=== PATIENT | male | born 1980 | race Caucasian/White ===

== ENCOUNTER → 2020-10-29 07:00 | Outpatient (CLI) | payer OTHER, SELFPAY ==
--- NOTE | ~2020-10-29 | MR_ITS ---
EXAMINATION: MR knee LT wo con DATE: 10/29/2020 07:36 INDICATION: Left knee pain. TECHNIQUE: Magnetic resonance imaging (MRI) of the left knee was performed without intravenous contra st. Sequences included axial PD-weighted FS FSE, coronal PD-weighted FSE and PD-weighted FS FSE, sagi ttal PD-weighted FSE, and sagittal T2-weighted FS FSE. COMPARISON: Left knee radiographs 08/27/2020 FINDINGS: Medial compartment: There is a complex tear of body and posterior horn of medial meniscus with torn bucket-handle compone nt in the intercondylar notch. There is cartilage surface irregularity of tibial condyle and femoral condyle. Lateral compartment: The lateral meniscus is normal. There is cartilage surface irregularity of tibial condyle. Femoral ca rtilage is normal. Patellofemoral compartment: There is cartilage surface irregularity of patellar medial facet. Trochlear cartilage is normal. Ligaments and tendons: The anterior and posterior cruciate ligaments are normal. Medial collateral ligament is normal. There are changes of prior sprain of fibular collateral ligament characterized by thickening and increased signal intensity proximally. There is mild patellar tendinopathy. Fluid: There is a small knee joint effusion. There is trace fluid in a Vyas's cyst. IMPRESSION: 1. Mild tricompartmental chondrosis. 2. Complex tear of medial meniscus with torn bucket-handle component in the intercondylar notch. 3. Small knee joint effusion. Reviewed, dictated and finalized at location A. HER ADVISOR IMPRESSION: 1. Mild tricompartmental chondrosis. 2. Complex tear of medial meniscus with torn bucket-handle component in the int ercondylar notch. 3. Small knee joint effusion.
== END ==
PROVIDERS: PCP Family Medicine; Visit Provider Orthopaedic Surgery
DX: M25.462 Effusion, left knee (principal); S83.232A Complex tear of medial meniscus, current injury, left knee, initial encounter; X58.XXXA Exposure to other specified factors, initial encounter
CPT/HCPCS: 73721

== ENCOUNTER → 2020-11-01 00:17 | Outpatient (CLI) | payer OTHER, SELFPAY ==
[2020-11-01 18:19] LABS: SARS-CoV-2 RNA PCR Negative
== END ==
PROVIDERS: PCP Family Medicine; Visit Provider Orthopaedic Surgery
DX: Z01.812 Encounter for preprocedural laboratory examination (principal); Z20.822 Contact with and (suspected) exposure to COVID-19
CPT/HCPCS: C9803; U0003; U0005

== ENCOUNTER 2020-11-04 01:00 | Day surgery (SDC) | payer OTHER, SELFPAY ==
[2020-10-30 11:48] VITALS: BMI 29.3
[2020-11-04] VITALS (7 sets, daily range): BP systolic 112–146; BP diastolic 58–90; PULSE 55–72; RESP 12–16; TEMP 36–36.1; O2SAT 100
[2020-11-04] MEDS: ACETAMINOPHEN 500 MG TABLET 1000 MG PO (09:14)
--- NOTE | 2020-11-04 09:22 | WPDHPUPDATE1 ---
History and Physical Update Update Date/Time: 11/04/20 09:22 History and Physical has been reviewed, including an updated exam of the patient. There are NO changes in the patient's condition. Risks, benefits, and alternatives have been discussed and questions answered. Patient agrees to proceed with procedure.
[2020-11-04] MEDS: LACTATED RINGERS 1,000 ML 30 ML IV CONT (09:30)
[2020-11-04] MEDS: KETOROLAC 15 MG/ML VIAL (*BKC) IV PUSH (09:31)
--- NOTE | 2020-11-04 09:35 | P.PNAN_ITS ---
Anes - Initial Pre Proc Eval Procedure: Operation Date: 11/04/20 10:30 Proposed Procedures p Left Knee Arthroscopy, Partial Meniscectomy - Issa Lutz MD Date/Time: 11/04/20 09:35 Surgeon: Issa Lutz MD Pre Op Diagnosis: Left Knee Medial Meniscus Tear Patient Data Age: 40 Gender: M Height: 1.83 m Weight: 100 kg Last Vital Signs Temp 36.1 C L 11/04/20 08:42 Pulse 69 11/04/20 08:42 Resp 16 11/04/20 08:42 BP 146/90 H 11/04/20 08:42 Pulse Ox 100 11/04/20 08:42 Allergies Allergy/AdvReac Type Severity Reaction Status Date / Time No Known Allergies Allergy Verified 11/04/20 08:51 Home Medications Medication Instructions Recorded Confirmed Type famotidine [Pepcid AC] 20 mg PO DAILY PRN 10/30/20 11/04/20 History Patient hx anesthesia problems: none Family hx anesthesia problems: none PMFSH Past Medical History Medical History (Updated 11/01/20 @ 09:13 by Quan Laureano DO) BMI 29.0-29.9,adult GERD (gastroesophageal reflux disease) Surgical History Surgical History H/O right knee surgery lateral release Family History Family History Grandparent Family history of lung cancer Family history of heart disease in male family member before age 55 Social History Social History Smoking status: Never smoker Alcohol intake: current Living arrangements: with family 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 Gender identity (if verbalized by the patient): Male Spiritual care concerns: No Anes - Eval Final PreProcedure Day of Procedure 11/04/20 09:35 Patient weight: overweight Heart: regular rate and rhythm Lungs: clear to auscultation and normal air movement Airway: Mallampati scale class II Neurological: alert and oriented Last oral intake: >/= 8 hours ASA classification: II Emergent: no Anesthetic plan: proceed Anesthesia type and monitoring: general LMA and standard monitoring Informed Consent: The patient's anesthetic plan and its attendant risks and benefits were discussed with the patient/family/POA. Questions were solicited and answers provided to the satisfaction of the patient/family/POA.
[2020-11-04] MEDS: ceFAZolin 2 GM/D5W 50 ML 2 GM/50 ML BAG IVPB (10:34)
[2020-11-04] MEDS: LIDOCAINE HCL 1% LOCAL INJ 20 ML VIAL 50 ML INFILTRATE (10:35)
--- NOTE | 2020-11-04 11:02 | PM.PROC ---
Procedure Note - Detailed Date of procedure: 11/04/20 Pre-op diagnosis: Left Knee Medial Meniscus Tear Post-op diagnosis: same Procedure performed: Left knee arthroscopy, partial medial meniscectomy Description of procedure: The patient was identified and proper site identified. He was taken to the operating room and transferred to the OR table placing her supine taking care to pad the torso and extremities. After general anesthetic induction and intubation, a nonsterile tourniquet was placed high on the left thigh but was not use. The left lower extremity was positioned, prepped and draped in usual sterile fashion. 10 cc of 1% lidocaine was injected into the subcutaneous tissue in the area of the portals at start of the procedure, and an additional 10 at the end. The portals were established and the arthroscopy was carried out. The articular cartilage in all three compartments was in excellent condition with minimal fraying appreciated medially. Lateral meniscal cartilage was in continuity and was intact. Medially there was complex tearing of the posterior horn of the medial meniscus involving the posterior third. Anterior posterior cruciate ligaments were in continuity. The pouch and gutters were clear. The torn meniscus was contoured back to a stable rim with basket forceps and a shaver. Knee was flushed with a copious amount of arthroscopic fluid and the ArthroCare Wand was used for hemostasis. Portals were closed with three O nylon suture and a sterile dressing was applied. He tolerated the procedure well, was awakened, extubated and taken to recovery area in stable condition. There were no known intraoperative complications. Estimated blood loss was negligible. He received perioperative antibiotics. Anesthesia: GLMA Surgeon: Issa Lutz MD Estimated blood loss (mL): 5 Drains: No Packing: No Pathology: none sent Complications: No immediate complications Condition: stable Disposition: PACU
== END 2020-11-04 12:40 | disposition home or self-care (01) ==
PROVIDERS: PCP Family Medicine; Visit Provider Orthopaedic Surgery
PROC: (CPT 29870; principal; 2020-11-04 10:30)
DX: M23.322 Other meniscus derangements, posterior horn of medial meniscus, left knee (principal); K21.9 Gastro-esophageal reflux disease without esophagitis
CPT/HCPCS: 29881; A9270; C9803; J0690; J1100; J1885; J2250; J2405; J2704; J3010; J7120; U0003; U0005

== ENCOUNTER 2020-12-05 14:00 | Outpatient (RCR) | payer OTHER, SELFPAY ==
--- NOTE | 2020-11-07 13:59 | PTOPEVAL ---
PHYSICAL THERAPY EVALUATION AND PLAN OF CARE 11-07-20 Thank you for referring Fredrick Ash to [facility].? He is scheduled to be seen for therapy? 1-2x/week for 4 weeks. review, sign, date and return this plan of care PITER. I agree with and certify that the following plan of care is medically necessary. Referring Physician Date Attending Provider: Issa Lutz MD PT Outpatient Evaluation Document 11/07/20 13:10 RANDY (Rec: 11/07/20 13:59 RANDY [id number]) Outpatient Past Medical History Past Medical History Source of Past Medical History Recalled from Previous Visit, Confirmed with Patient/Family Neurological History Hx Neurological Disorders No Significant History Cardiovascular History Hx Cardiac Disorders No Significant History Respiratory History Hx Respiratory Disorders No Significant History Gastrointestinal History Hx Gastroesophageal Reflux Disease Yes Genitourinary History Hx Genitourinary Disorders No Significant History Musculoskeletal History Hx Crutches or Walker Use Yes: this admit/surgery Query Text:If Yes, Enter Crutches, Walker, or Both in the Comment Hx Orthopedic Surgery Yes: arthroscopy right knee 25 years ago. Hx Other Musculoskeletal Disorders Yes: R ITB pain; Hematological History Hx Hematological Disorders No Significant History Endocrine History Hx Endocrine Disorders No Significant History HEENT History Hx HEENT Disorders No Significant History Integumentary History Hx Skin Disorders No Significant History Reproductive History Hx Reproductive Disorders No Significant History Psychosocial History Hx Psychiatric Disorders No Significant History Pain History History of Any Previous or Ongoing No Significant History Instance of Pain Anesthesia History Hx Anesthesia Reactions No Significant History Evaluation Information Problem Diagnosis s/p L knee arthroscopy Onset 11-04-20 Subjective Information onset of L knee pain in Query Text:As Reported By Patient/ June;gradual increase in Family pain--degenerative tear; used crutches for one day after surgery, then able to bear weight without any problems, so no longer using them; took dressing off this AM; Prior Level of Function Activity Level (Last 3 Months) Occupation office work- sales; computer, phone Activity of Daily Living Ability Independent Indoor/Home Mobility Independent Community Mobility Independent Stairs Ability Independent Functional Cognition (Plan
--- NOTE | 2020-12-05 14:40 | PTOPEVAL ---
PHYSICAL THERAPY DISCHARGE 12-05-20 Refer to the clinical summary below. Fredrick has made excellent progress; all the PT goals were achieved. Discharge PT services. He is to continue with his home exercises and return to the gym for fitness activity. Thank you for referring Fredrick Ash to [facility].? Please review, sign, date and return this plan of care PITER. I agree with and certify that the following plan of care is medically necessary. Referring Physician Date Attending Provider: Issa Lutz MD Document 12/05/20 14:10 RANDY (Rec: 12/05/20 14:40 RANDY [id number]) Assessment Status Discharge Subjective Information Fredrick reports: doing more Query Text:As Reported By Patient/ activity, is where he should Family be; kneeling still little tender on knee; have been riding his stationary bike 20- 25 minutes; doing well with home exercises; no problems on stairs; continues to get stronger and do more activity; ready for discharge from PT services. Pain Assessment Timing of Pain Assessment Timing of Pain Assessment Assessment Pain Scale Pain Scale Used Numeric (1 - 10) Self Report Pain Assessment Left Knee(s) Reported Pain Level 0 Pain Description Tender on Palpation Pain Frequency Acute Lowest Pain Intensity 0 Greatest Pain Intensity 2 Other Pain Aggravating Factors kneeling- tender over L lateral knee Pain Behaviors None Pain Score Pain Score 0: Self Report Interventions Used Interventions Used By Clinicians Exercise Lower Extremity Range of Motion General Lower Extremity Range of Motion Gross Lower Extremity Range of Motion sitting L knee active 0'- 130' Comments , no pain reported supine: hamstring length with SLR 60' Lower Extremity Muscle Strength Testing General Lower Extremity Strength Gross Lower Extremity Strength L LE: 4# ankle wt: Supine SLR x 20 reps; side lying hip abduction x 25 reps; prone knee flexion and hip extension x 20 reps; single leg standing x 30 seconds with good stability; B leg press 110# x 10 and leg and calf press 120# x 20 reps; standing: single leg PF and small squat x 15 reps with good stability;
== END 2020-12-06 10:07 | disposition home or self-care (01) ==
LOC: ANHPT 14:00
PROVIDERS: PCP Family Medicine; Visit Provider Orthopaedic Surgery
DX: Z48.89 Encounter for other specified surgical aftercare (principal); Z98.890 Other specified postprocedural states
CPT/HCPCS: 97110; 97140; 97161

== ENCOUNTER → 2021-07-08 13:06 | Outpatient (CLI) | payer OTHER, SELFPAY ==
--- NOTE | ~2021-07-08 | XR_ITS ---
XR knee RT 3V 07/08/2021 13:47 INDICATION: Right knee pain PROCEDURE: 3 views right knee COMPARISON: No prior studies for comparison. FINDINGS: Fracture, dislocation or subluxation is not identified. The soft tissues appear within norm al limits. No foreign bodies are identified. IMPRESSION: 1: NO ACUTE BONE OR JOINT ABNORMALITY IDENTIFIED. Reviewed, dictated and finalized at location B.
== END ==
PROVIDERS: Visit Provider Orthopaedic Surgery
DX: M25.561 Pain in right knee (principal)
CPT/HCPCS: 73562

== ENCOUNTER → 2022-01-20 10:22 | Outpatient (CLI) | payer OTHER, SELFPAY ==
--- NOTE | ~2022-01-20 | US_ITS ---
EXAMINATION: US soft tissue lower back DATE: 01/20/2022 10:45 INDICATION: Nodule of skin of back. TECHNIQUE: Multiple grayscale ultrasound images of the right lower back were obtained. COMPARISON: None FINDINGS: There is no abnormal mass in the patient's area of concern in the right lower back. IMPRESSION: 1. No abnormal mass in the patient's area of concern in the right lower back. Reviewed, dictated and finalized at location B.
== END ==
PROVIDERS: PCP Family Medicine; Visit Provider Nurse Practitioner
DX: R22.2 Localized swelling, mass and lump, trunk (principal)
CPT/HCPCS: 76705

== ENCOUNTER → 2022-06-23 12:05 | Outpatient (CLI) | payer OTHER, SELFPAY ==
--- NOTE | ~2022-06-23 | XR_ITS ---
XR cervical spine 4-5V 06/23/2022 12:34 Indication: Neck pain Procedure: 5 views of the cervical spine Comparison: No prior studies for comparison. Findings: Vertebral body heights are maintained. There is mild disc narrowing at C5-6. No prevertebra l soft tissue swelling. There is mild multilevel uncinate hypertrophy. Odontoid process is normal. Impression: 1: Mild cervical spondylosis. Reviewed, dictated and finalized at location B. Impression: 1: Mild cervical spondylosis.
== END ==
PROVIDERS: PCP Family Medicine; Visit Provider Family Medicine
DX: M47.892 Other spondylosis, cervical region (principal)
CPT/HCPCS: 72050

== ENCOUNTER 2025-04-02 07:52 | Outpatient (NON) | payer OTHER, SELFPAY ==
--- NOTE | 2025-04-02 | S_PTH ---
PATIENT: Fredrick Mooney LOC: [facility] U#:[id number] AGE/SX: 44/M ROOM: RE04/02/[address]: Jake Uriostegui MD : 1980 BED: DIS: 04/02/2025 SPEC #: [id number] RECD: 04/03/25 08:38 STATUS: RADHAMES REQ #: [id number] BRITTNY: 04/02/25 00:[address]: Jake Uriostegui DEPT: [facility] Surgical RECD BY: Renetta Perez ENTERED: 04/03/25 08:38 SP TYPE: Surgical OTHR DR: Nely Awan, SUPERVISOR SEWING DEPARTMENT Tissues: A - Colon Polypectomy Procedures: Hematoxylin and Eosin Stain Gross and Microscopic Level 4
--- OUTSIDE RECORDS SUMMARY | 2025-04-03 07:55 | XMS_ITS | Clinical Summary ---
Author Organization [facility] Address [facility] [place] [address] Care Team Providers Care Park Ranger Name Role Phone Nely Awan NP Primary Care Provider [phone] Allergies No known active allergies Medications esomeprazole 40 MG capsule Take 1 capsule (40 mg total) by mouth. Active tadalafil (CIALIS) 5 MG tablet Take 1 tablet (5 mg total) by mouth daily as needed for Erectile Dysfunction. Active Active Problems Problem Noted Date Diagnosed Date Throat clearing 08/15/2024 Overview (08/15/2024): Has been having post nasal drip/throat clearing 4 months now. Worse in the morning and after eating. Does feel like he has post nasal drip. Pt however also has acid reflex and heartburn has been well controlled with esomeprazole 40mg daily. Pt states however if he were to go out to eat/drink alcohol is symptoms are not as well controlled and he will have to take famotide as well. Denies any sore throat, choking on food, chronic cough, or change in voice. Assessment & Plan (08/15/2024 10:07 AM BOTTLE TESTER): We went over different causes of throat clearing to include post nasal drip, uncontrolled reflex. We went over medications pt can take otc for allergies to see if it helps such as spray, Astepro nasal spray that is [id number], and recommend a daily antihistamine. He has taken in the past however he does not take daily antihistamine regularly so he will trial this. He states he will see how he does in a few months and if symptoms continue or worsen we discussed a referral to an ENT for further evaluation. I also informed patient that if it is related to reflux when he sees GI for his annual colonoscopy he can discuss getting EGD done as well. GERD education also discussed Post-nasal drip 08/15/2024 Overview (08/15/2024): Has been having post nasal drip/throat clearing 4 months now. Does feel like he has post nasal drip. Pt however also has acid reflex and heartburn has been well controlled with esomeprazole 40mg daily. Pt states however if he were to go out to eat/drink alcohol is symptoms are not as well controlled and he will have to take famotide as well. Denies any sore throat, choking on food, chronic cough, or change in voice. Assessment & Plan (08/15/2024 10:08 AM BOTTLE TESTER): We went over different causes of throat clearing to include post nasal drip, uncontrolled reflex. We went over medications pt can take otc for allergies to see if it helps such as spray, Astepro nasal spray that is [id number], and recommend a daily antihistamine. He has taken in the past however he does not take daily antihistamine regularly so he will trial this. He states he will see how he does in a few months and if symptoms continue or worsen we discussed a referral to an ENT for further evaluation. I also informed patient that if it is related to reflux when he sees GI for his annual colonoscopy he can discuss getting EGD done as well. GERD education also discussed Obesity (BMI 30-39.9) 08/15/2024 Assessment & Plan (08/15/2024 10:09 AM BOTTLE TESTER): Encourage diet and lifestyle changes to assist with weight loss. Gastroesophageal reflux disease without esophagi tis 09/15/2021 Overview (08/15/2024): Takes esomeprazole 40mg daily. If he does not take his reflex symptoms come back. Assessment & Plan (08/15/2024 10:13 AM BOTTLE TESTER): Resume esomeprazole 40mg daily. GERD education discussed. Avoid eating 3 hours prior to bedtime. Sleep with HOB up to prevent heartburn. Avoid foods/drinks that trigger reflex like spicy/acidic foods, alcohol, etc. Resolved Problems Problem Noted Date Diagnosed Date Resolved Date Tendinitis of right forearm 12/30/2021 08/15/2024 Immunizations Immunization Administration Dates Next Due HPV GARDASIL 9-VALENT 04/13/2024,12/15/2023,09/20 Influenza (Generic) 07/24/2024,07/13/2019 Influenza Adult (Generic) 10/07/2023,05/2022,08/22/2021,2019 MODERNA COVID-19 (12+) MRNA, LNP-S, PF, 100 MCG/ 0.5 ML DOSE 12/30/2020,12/09/2020 PFIZER COVID-19 (ORIGINAL FORMULATION, PURPLE CAP) mRNA, LNP-S, PF, 30 MCG/0.3 ML DOSE 08/28/2021 Tdap (Generic) 11/02/2017 Family History Medical History Relation Comments Cancer Father Prostate cancer Prostate Cancer Father Hypertension Mother Relation Status Comments Father Mother Social History Tobacco Use Types Packs/Day Years Used Date Smoking Tobacco: Never Passive Smoke Exposure: Never Smokeless Tobacco: Never Tobacco Cessation:Counseling Given: No Comments:The provider can provide you with more information about quitting. Alcohol Use Standard Drinks/Week Comments Yes 8 (1 standard drink = 0.6 oz pur e alcohol) PHQ-2 Answer Date Recorded Patient Health Questionnaire-2 Score 0 11/06/2024 Sex and Gender Information Value Date Recorded Sex Assigned at Male 11/06/2024 9:43 AM BOTTLE TESTER Legal Sex Male 11:36 AM CDT Gender Identity Male 11/06/2024 9:43 AM BOTTLE TESTER Sexual Orientation Straight 11/06/2024 9: 43 AM BOTTLE TESTER Last Filed Vital Signs Vital Sign Reading Time Taken Comments Blood Pressure 124/82 11/06/2024 9:43 AM BOTTLE TESTER Pulse 82 11/06/2024 9:43 AM BOTTLE TESTER Temperature 36.8 C (98.3 F) 11/06/2024 9:43 AM BOTTLE TESTER Respiratory Rate 20 11/06/2024 9:43 AM BOTTLE TESTER Oxygen Saturation 97% 11/06/2024 9:43 AM BOTTLE TESTER Inhaled Oxygen Concentration - - Weight 105.2 kg (232 lb) 11/06/2024 9:43 AM BOTTLE TESTER Height 182.9 cm (6') 11/06/2024 9:43 AM BOTTLE TESTER Body Mass Index 31.46 11/06/2024 9:43 AM BOTTLE TESTER Plan of Treatment Health Maintenance Due Date Last Done Comments Colorectal Cancer Screening Colonoscopy (10 Years) 1979 Hepatitis B Vaccines (1 of 3 - 19+ 3-dose series) 1998 Annual Physical 08/15/2025 08/15/2024 DTaP, Tdap and Td Vaccines (2 - Td or Tdap) 11/02/2027 11/02/2017 HPV Vaccines Completed 04/13/2024, 11/19, 10/07/2023 COVID-19 Vaccine Completed 07/24/2024, , 08/28/2022, Additional history exists Hepatitis C Completed 08/15/2024 PHQ-2 (Physician [facility]) Completed 11/06/2024 Meningococcal B Vaccine Aged Out No l onger eligible based on patient's age to complete this topic Meningococcal Vaccine Aged Out No poonam celsa eligible based on patient's age to complete this topic Pneumococcal Vaccine: Pediatrics (0 to 5 Years) and At-Risk Patients (6 to 49 Years) Aged Out No longer eligible based on patient's age to complete this topic RSV Immunizations Under 20 Months Aged Out No longer eligible based on patient's age to complete this topic Procedures Procedure Name Priority Date/Time Associated Diagnosis Comments HEPATITIS C ANTIBODY Routine 08/15/2024 10:09 AM BOTTLE TESTER Need for hepatitis C screening test from Last 3 Months or Most Recently Relevant to Health Maintenance Results * HEPATITIS C ANTIBODY (08/15/2024 10:09 AM BOTTLE TESTER) HEPATITIS C AB NON-REACTI VE NON-REACT ANGELIC 08/15/2024 8:46 PM BOTTLE TESTER [facility] Comment: ANTIBODIES TO HCV NOT DETECTED. DOES NOT EXCLUDE THE POSSIBILITY OF EXPOSURE TO HCV. 08/15/2024 10:0 9 AM BOTTLE TESTER us Nely Awan [facility] Final Res ult [facility] [address] [place] [address], [phone] from Last 3 Months or Most Recently Relevant to Health Maintenance Insurance [facility] Care Teams Park Ranger Relationship Specialty Start Date End Date Nely Awan NP [address] [place] [address] PCP - General NURSE PRACTITIONER 12/29/21
== END 2025-04-02 07:53 | disposition home or self-care (01) ==
PROVIDERS: PCP Nurse Practitioner; Visit Provider Internal Medicine Gastroenterology
DX: Z12.11 Encounter for screening for malignant neoplasm of colon (principal); D12.2 Benign neoplasm of ascending colon
CPT/HCPCS: 88305

== ENCOUNTER 2025-04-02 10:39 | Day surgery (SDC) | payer OTHER, SELFPAY ==
[2024-08-29 09:16] VITALS: BMI 31.7
[2025-03-20 13:34] VITALS: BMI 31.8
[2025-04-02 11:21] VITALS: BMI 31.6
[2025-04-02 11:23] VITALS: BP 138/103; PULSE 72; RESP 16; TEMP 36.5; O2SAT 98
[2025-04-02] MEDS: LACTATED RINGERS 1,000 ML 150 ML IV CONT (11:30)
--- NOTE | 2025-04-02 12:19 | WPDANESEPPF ---
Anes - Initial Pre Proc Eval Procedure: Operation Date: 04/02/25 12:30 Proposed Procedures p Screening Colonoscopy - Jake Uriostegui MD Date/Time: 04/02/25 12:19 Surgeon: Jake Uriostegui MD Pre Op Diagnosis: Neoplasm Screening Patient Data Age: 44 Gender: M Height: 1.83 m Weight: 105.7 kg Last Vital Signs Temp 97.7 F 04/02/25 11:23 Pulse 72 04/02/25 11:23 Resp 16 04/02/25 11:23 BP 138/103 H 04/02/25 11:23 Pulse Ox 98 04/02/25 11:23 O2 Del Method Room Air 04/02/25 11:23 Allergies Allergy/AdvReac Type Severity Reaction Status Date / Time No Known Allergies Allergy Verified 04/02/25 11:08 Home Medications ?Medication ?Instructions ?Recorded ?Confirmed ?Type famotidine 20 mg tablet (Pepcid AC) 20 mg PO DAILY PRN Acid Reflux 10/30/20 04/02/25 History esomeprazole magnesium 20 mg 20 mg PO DAILY 08/10/23 04/02/25 History capsule,delayed release (Nexium) tadalafil 5 mg tablet (Cialis) 5 mg PO DAILY 03/20/25 04/02/25 History Patient hx anesthesia problems: none Family hx anesthesia problems: none Results Review: All pre-operative results and documents have been reviewed as part of the pre-operative evaluation. [facility] Past Medical History Medical History (Updated 08/10/23 @ 10:38 by Stephy Guzman, JO) GERD (gastroesophageal reflux disease) Surgical History Surgical History (Updated 08/10/23 @ 12:03 by Stephy Guzman, PACelestino) History of vasectomy 2015 History of arthroscopy of left knee Partial medial meniscectomy October 2020 H/O right knee surgery lateral release Family History Family History (Updated 08/10/23 @ 12:04 by Stephy Guzman, PACelestino) Grandparent Family history of lung cancer Family history of heart disease in male family member before age 55 Father Malignant neoplasm of prostate metastatic Mother Hypertension Social History Social History (Updated 08/10/23 @ 10:36 by Radha Fong MA) Smoking status: Never smoker Alcohol intake: current Alcohol use details: social Substance use: current Substance use type: marijuana Other substance usage details: rarely Lack of Transportation: No Lack of Food: Never True Current Housing: I Have Housing Concerned About Future Housing: No Difficulty Paying Gas/Electric Bills: No Difficulty Paying for Meds: No Currently Unemployed: No Education: Master's Degree or Higher Difficulty w/ Childcare or Family Care: No Living arrangements: with family Occupation/Education: occupation 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 Informed Consent: The patient's anesthetic plan and its attendant risks and benefits were discussed with the patient/family/POA. Questions were solicited and answers provided to the satisfaction of the patient/family/POA.
--- NOTE | 2025-04-02 13:05 | P.HP_ITS ---
H&P: HPI History of Present Illness Date/Time: 04/02/25 13:05 Chief Complaint: Screening colonoscopy Narrative: This is the patient's first colonoscopy. There are no GI symptoms and there is no family history of colorectal cancer. Review of Systems Review of Systems: All systems reviewed & are unremarkable except as noted in HPI and below PMFSH Past Medical History Medical History (Updated 04/02/25 @ 13:05 by Jake Uriostegui MD) GERD (gastroesophageal reflux disease) Surgical History Surgical History (Updated 08/10/23 @ 12:03 by Stephy Guzman, PACelestino) History of vasectomy 2015 History of arthroscopy of left knee Partial medial meniscectomy October 2020 H/O right knee surgery lateral release Family History Family History (Updated 08/10/23 @ 12:04 by Stephy Guzman, PACelestino) Grandparent Family history of lung cancer Family history of heart disease in male family member before age 55 Father Malignant neoplasm of prostate metastatic Mother Hypertension Social History Social History (Updated 08/10/23 @ 10:36 by Radha Fong MA) Smoking status: Never smoker Alcohol intake: current Alcohol use details: social Substance use: current Substance use type: marijuana Other substance usage details: rarely Lack of Transportation: No Lack of Food: Never True Current Housing: I Have Housing Concerned About Future Housing: No Difficulty Paying Gas/Electric Bills: No Difficulty Paying for Meds: No Currently Unemployed: No Education: Master's Degree or Higher Difficulty w/ Childcare or Family Care: No Living arrangements: with family Occupation/Education: occupation Additional occupation/education comments: presales engineer Gender identity (if verbalized by the patient): Male Sexual Orientation (if Verbalized by the Patient): Straight or Heterosexual Spiritual care concerns: No Meds Home Medications and Allergies Home Medications ?Medication ?Instructions ?Recorded ?Confirmed ?Type famotidine 20 mg tablet (Pepcid AC) 20 mg PO DAILY PRN Acid Reflux 10/30/20 04/02/25 History esomeprazole magnesium 20 mg 20 mg PO DAILY 08/10/23 04/02/25 History capsule,delayed release (Nexium) tadalafil 5 mg tablet (Cialis) 5 mg PO DAILY 03/20/25 04/02/25 History Allergies Allergy/AdvReac Type Severity Reaction Status Date / Time No Known Allergies Allergy Verified 04/02/25 11:08 Vital Signs Vital Signs - 24 hr 04/02/25 11:23 Temperature 97.7 F Pulse Rate 72 Respiratory Rate 16 Blood Pressure 138/103 H Pulse Oximetry 98 Oxygen Delivery Room Air Exam Const: General: cooperative and healthy appearing Resp: Effort & Inspection: normal respiratory effort and able to speak in complete sentences Auscultation: clear to auscultation bilaterally Cardio: Rate: regular rate Rhythm: regular rhythm GI: Inspection: normal to inspection GI Palp: No No hepatosplenomegaly present Auscultation: normal bowel sounds Rectal Exam: deferred Skin: General skin exam: normal color Psych: Appearance: grossly normal Mental Status: mental status grossly normal Assessment and Plan Assessment and plan (1) Encounter for screening colonoscopy: Code(s): Z12.11 - Encounter for screening for malignant neoplasm of colon Status: Acute
--- NOTE | 2025-04-02 13:21 | WPDANESPN ---
Anes - Prog Note Post-Op Date/Time: 04/02/25 13:21 Vital Signs: Last Vital Signs Temp 97.7 F 04/02/25 11:23 Pulse 72 04/02/25 11:23 Resp 16 04/02/25 11:23 BP 138/103 H 04/02/25 11:23 Pulse Ox 98 04/02/25 11:23 O2 Del Method Room Air 04/02/25 11:23 Pain Score (VAS): no Patient Feedback: Patient satisfied with anesthetic care.
[2025-04-02 13:30] VITALS: BP 122/80; PULSE 73; RESP 16; O2SAT 99
[2025-04-02 13:40] VITALS: BP 136/83; PULSE 72; RESP 17; O2SAT 99
[2025-04-02 13:50] VITALS: BP 114/92; PULSE 65; RESP 16; O2SAT 100
== END 2025-04-02 13:56 | disposition home or self-care (01) ==
PROVIDERS: PCP Nurse Practitioner; Referring Provider Nurse Practitioner; Visit Provider Internal Medicine Gastroenterology
PROC: 0DJD8ZZ Inspection of Lower Intestinal Tract, Via Natural or Artificial Opening Endoscopic (ICD-10-PCS; CPT 45378; principal; 2025-04-02 12:30)
DX: Z12.11 Encounter for screening for malignant neoplasm of colon (principal); D12.2 Benign neoplasm of ascending colon; K57.30 Diverticulosis of large intestine without perforation or abscess without bleeding
CPT/HCPCS: 45385